=== PATIENT | female | born 1975 | race Caucasian/White ===

== ENCOUNTER 2018-06-22 04:56 | Inpatient (IN) ==
[2018-06-22] MEDS ORDERED: BUTORPHANOL 2 MG/ML VIAL IV PRN (05:13)
[2018-06-22] MEDS ORDERED: LACTATED RINGERS 250 ML IV ONE (05:13)
[2018-06-22] MEDS ORDERED: LACTATED RINGERS 500 ML IV PRN (05:13)
[2018-06-22] MEDS ORDERED: MEPERIDINE 50 MG/1 ML VIAL IV PRN (05:13)
[2018-06-22] MEDS ORDERED: ONDANSETRON 4 MG/2 ML VIAL IV PRN ×2 (05:13→09:08)
[2018-06-22] MEDS ORDERED: OXYTOCIN/LR 20 UNIT/1,000 ML BAG IV ONE ×2 (05:16→09:08)
[2018-06-22] MEDS ORDERED: OXYTOCIN/LR 20 UNIT/1,000 ML BAG IV SCH (05:30)
[2018-06-22] MEDS: LACTATED RINGERS 1,000 ML IV SCH ×2 (05:42→08:37)
[2018-06-22 06:08] LABS: Basophils # 0.1 10*3/uL (0.0-0.2); Basophils % 0.5 % (0.0-0.8); Eosinophils # 0.1 10*3/uL (0.0-0.87); Hematocrit 42.9 VOL% (35.7-47.0); Hemoglobin 15.4 GM/DL (12.0-16.0); Immature Granulocytes % 0.5 %; Immature Granulocytes Absolute 0.06 #; Lymphocytes # 2.7 10*3/uL (1.4-4.0); Lymphocytes % 24.3 % (21.3-54.2); Mean Corpuscular HGB Conc 35.9 GM/DL (32-36); Mean Corpuscular Hemoglobin 33 PG (27-34); Mean Corpuscular Volume 91.5 FL (87-102); Mean Platelet Volume 11.9 FL (9.6-12.0); Monocytes # 0.8 10*3/uL (0.11-0.8); Monocytes % 7.3 % (1.7-12.7); Neutrophils # 7.4 10*3/uL (1.4-7.4); Neutrophils % 66.4 % (38.7-73.9); Platelet Count 196 T/CUMM (130-400); Red Blood Count 4.69 MC/CUMM (3.8-5.5); Red Cell Distribution Width 13.4 % (9.3-17.3); White Blood Count 11.1 T/CUMM (4-12)
[2018-06-22 06:48] LABS: Bilirubin,Total 0.4 MG/DL (0.2-1.0); Calcium 9.3 MG/DL (8.5-10.1); Osmolality,Calculated 272.7 MOS/KG (273-304); Potassium 4.6 MMOL/L (3.5-5.1); Total Protein 7.3 G/DL (6.4-8.3)
[2018-06-22] MEDS ORDERED: LIDOCAINE 1% 50 ML VIAL ONE (08:54)
[2018-06-22] MEDS ORDERED: miSOPROStol 200 MCG TABLET ONE (08:54)
[2018-06-22] MEDS ORDERED: BENZOCAINE 20%/MENTHOL 0.5% SPRAY 56 GM CAN TOP PRN (09:08)
[2018-06-22] MEDS ORDERED: oxyCODONE/ACETAMINOPHEN 5-325 MG TABLET PO PRN ×2 (09:08)
[2018-06-22] MEDS ORDERED: HYDROCORTISONE 2.5% RECTAL CREAM 30 GM TUBE TOP PRN (09:08)
[2018-06-22] MEDS ORDERED: DIPH/TET/ACEL PERT BOOSTER VACCINE 0.5 ML VIAL IM ONE (09:08)
[2018-06-22] MEDS ORDERED: RHO(D) IMMUNE GLOBULIN 300 MCG SYRINGE IM ONE (09:08)
[2018-06-22] MEDS ORDERED: LANOLIN 50% CREAM 0.3 OZ TUBE TOP PRN (09:08)
[2018-06-22] MEDS ORDERED: ACETAMINOPHEN 325 MG TABLET PO PRN (09:08)
[2018-06-22] MEDS ORDERED: BISACODYL 10 MG SUPP RECTAL PRN (09:08)
[2018-06-22] MEDS ORDERED: WITCH HAZEL PADS 100/JAR TOP PRN (09:08)
[2018-06-22] MEDS ORDERED: IBUPROFEN 800 MG TABLET PO PRN (09:08)
[2018-06-22] MEDS ORDERED: MEASLES/MUMPS/RUBELLA VACCINE 0.5 ML VIAL SUBCUT ONE (09:08)
[2018-06-22] MEDS: DOCUSATE SODIUM 100 MG CAPSULE PO SCH (21:21)
[2018-06-23] MEDS: LACTATED RINGERS 1,000 ML IV SCH (00:46)
[2018-06-23 06:43] LABS: Basophils # 0.1 10*3/uL (0.0-0.2); Basophils % 0.4 % (0.0-0.8); Eosinophils # 0.2 10*3/uL (0.0-0.87); Eosinophils % 1.1 % (0.00-10.9); Hematocrit 35.9 VOL% (35.7-47.0); Immature Granulocytes % 1.6 %; Immature Granulocytes Absolute 0.23 #; Lymphocytes % 14.2 % (21.3-54.2); Mean Corpuscular HGB Conc 36.2 GM/DL (32-36); Mean Corpuscular Hemoglobin 33 PG (27-34); Mean Corpuscular Volume 91.6 FL (87-102); Mean Platelet Volume 11.7 FL (9.6-12.0); Monocytes % 7.2 % (1.7-12.7); Neutrophils # 10.7 10*3/uL (1.4-7.4); Neutrophils % 75.5 % (38.7-73.9); Platelet Count 170 T/CUMM (130-400); Red Blood Count 3.92 MC/CUMM (3.8-5.5); Red Cell Distribution Width 13.6 % (9.3-17.3); White Blood Count 14.1 T/CUMM (4-12)
[2018-06-23] MEDS: DOCUSATE SODIUM 100 MG CAPSULE PO SCH (09:30)
[2018-06-24 07:21] VITALS: BP 131/83
[2018-06-24] MEDS ORDERED: INFLUENZA VIRUS VACCINE 0.5 ML SYRINGE IM ONE (09:07)
[2018-06-24] MEDS: DOCUSATE SODIUM 100 MG CAPSULE PO SCH ×2 (09:16)
== END 2018-06-24 11:20 | disposition home or self-care (01) | DRG 775 ==
LOC: N.LDOUT 04:56 → N.LD 04:58 → N.OB 12:44
PROVIDERS: ADMIT Specialist; ATTEND Specialist